=== PATIENT | male | born 1965 | race Caucasian/White ===

== ENCOUNTER → 2021-01-23 | Outpatient (CLI) | payer BC ==
[~2021-01-23] MED LIST: FLOMAX 0.4 MG0.4 MG PO; FLOMAX0.4 MG PO; GLUCOPHAGE 500500 MG PO; MULTIVITAMINS1 EAC2 PO; NORCO 5-325 TA1 EACH PO; SINGULAIR10 MG PO; SUPER B COMPLEX PO; TYLENOL 500 MG500 MG PO; VALSARTAN80 MG PO; VENTOLIN HFA 66.7 GM INH; ZOFRAN ODT 4 MG4 MG PO; ZYRTEC10 MG PO
== END ==
LOC: EXRD 09:23
DX: N20.0 Calculus of kidney (principal)
CPT/HCPCS: 74018

== ENCOUNTER → 2021-03-07 | Outpatient (CLI) | payer BC | LOC: KOH-I 09:22 | DX: Z13.6 Encounter for screening for cardiovascular disorders (principal); E11.9 Type 2 diabetes mellitus without complications; I10 Essential (primary) hypertension; Z82.49 Family history of ischemic heart disease and other diseases of the circulatory system | CPT/HCPCS: 76706-PO ==

== ENCOUNTER → 2021-08-23 | Outpatient (CLI) | payer BC | LOC: LAB 08:20 | DX: N20.0 Calculus of kidney (principal); Z12.5 Encounter for screening for malignant neoplasm of prostate | CPT/HCPCS: 36415; 82565; 84153; 84520 ==

== ENCOUNTER → 2021-08-25 | Outpatient (CLI) | payer BC | LOC: CT 08-23 11:30 | DX: N20.0 Calculus of kidney (principal); M54.50 Low back pain, unspecified; N28.1 Cyst of kidney, acquired | CPT/HCPCS: Q9967 ==

== ENCOUNTER → 2021-12-26 | Outpatient (CLI) | payer BC ==
[~2021-12-26] MED LIST changes: +ASMANEX HFA13 G1 INH; +METFORMIN HCL500 MG PO
[2021-12-26 09:50] LABS: BUN/CREATININE RATIO 18 (0-10)
== END ==
LOC: OPSV2 08:00
PROVIDERS: Anesthesiology
DX: Z01.818 Encounter for other preprocedural examination (principal); G56.00 Carpal tunnel syndrome, unspecified upper limb
CPT/HCPCS: 36415; 80048; 93005

== ENCOUNTER → 2022-01-01 | Day surgery (SDC) | payer BC | END | disposition home or self-care (01) | LOC: OR 05:33 | DX: M25.831 Other specified joint disorders, right wrist (principal); M25.841 Other specified joint disorders, right hand; G89.29 Other chronic pain; J45.909 Unspecified asthma, uncomplicated; E11.9 Type 2 diabetes mellitus without complications; I10 Essential (primary) hypertension; E78.5 Hyperlipidemia, unspecified; Z88.0 Allergy status to penicillin; Z79.899 Other long term (current) drug therapy | CPT/HCPCS: 73100; 76000; 82962; J0690; J1100; J1885; J2001; J2250; J2405; J2704; J3010 ==